=== PATIENT | male | born 1980 | race Caucasian/White ===

== ENCOUNTER 2023-02-14 18:39 | Emergency (ER) | payer SELFPAY ==
[~2023-02-14] VITALS: Ht 170.2 cm; Wt 78.0 kg
--- NOTE | 2023-02-14 18:47 | NUR ---
CINDY FROM HOME FOUND UNCONSCIOUS WITH DRUG PARAPHERNALIA ON FLOOR AWAKE AND ALERT ON ARRIVAL BUT STILL ALTERED.
--- NOTE | 2023-02-14 19:05 | NUR ---
iv at [facility] FOREARM FROM EMT, BLD DRAWN AND SENT TO LAB
--- NOTE | 2023-02-14 19:12 | NUR ---
ACCUCHECK DONE 77. NOTIFIED, PT ASLEEP.
--- NOTE | 2023-02-14 19:29 | NUR ---
TOÑA NIKOS MOTHER: [phone] CALL WHEN DISCHARGED
--- NOTE | 2023-02-14 20:15 | NUR ---
Chris short in [facility] - 02/14/23 at 2017 by AMIE [phone] TOÑA HERNANDEZ /GINA
--- NOTE | 2023-02-14 20:32 | NUR ---
MOTHER ON HER WAY TO PICKUP PATIENT.
--- NOTE | 2023-02-14 21:04 | NUR ---
Patient discharged to home in stable condition. Written and verbal after care instructions given. Patient verbalizes understanding of instruction.
[2023-02-14 21:42] VITALS: BP 135/105
== END 2023-02-14 21:43 | disposition home or self-care (01) ==
LOC: ER 18:46
DX: T50.991A Poisoning by other drugs, medicaments and biological substances, accidental (unintentional), initial encounter (principal); E11.9 Type 2 diabetes mellitus without complications; Y92.89 Other specified places as the place of occurrence of the external cause
CPT/HCPCS: 82962-TC